=== PATIENT | female | born 1980 | race Caucasian/White ===

== ENCOUNTER 2017-06-23 13:35 | Emergency (ER) | payer OTHER ==
[2017-06-23 13:35] VITALS: BMI 23.8
[2017-06-23] MEDS ORDERED: Sodium Chloride 0.9% 1,000 ML IV ONE (14:07)
[2017-06-23 14:38] LABS: BASO % 0.5 % (0.0-2.0); EOS # 0.3 K/uL (0.0-0.7); EOS % 4.9 % (0.0-4.0); HEMATOCRIT 36.9 % (34.0-47.0); LYMPH # 2.7 K/uL (1.0-4.3); LYMPH % 45.3 % (20.0-40.0); MEAN CELL VOLUME 85.8 fL (81.0-99.0); MEAN CORPUSCULAR HEMOGLOBIN 28.3 pg (27.0-31.0); MEAN PLATELET VOLUME 10.4 fL (7.2-11.7); MONO # 0.5 K/uL (0.0-0.8); MONO % 7.9 % (0.0-10.0); RED CELL DISTRIBUTION WIDTH 12.7 % (11.5-14.5); WHITE BLOOD COUNT 5.9 K/uL (4.8-10.8)
[2017-06-23 14:45] LABS: RBC URINE 18 /hpf (0-3); URINE BACTERIA RARE (<OCC); URINE BILIRUBIN NEGATIVE (NEGATIVE); URINE BLOOD 1+ (NEGATIVE); URINE COLOR Yellow (YELLOW); URINE GLUCOSE (UA) NORMAL (Normal); URINE KETONE NEGATIVE (NEGATIVE); URINE LEUKOCYTE ESTERASE 2+ Leu/uL (Negative); URINE PROTEIN 2+ mg/dL (NEGATIVE); URINE UROBILINOGEN NORMAL mg/dL (0.2-1.0); WBC URINE 98 /hpf (0-5)
[2017-06-23 14:47] LABS: CHLORIDE 105 mmol/L (98-107); POTASSIUM 4.1 mmol/L (3.6-5.2); SODIUM 141 mmol/L (132-148)
[2017-06-23 14:49] LABS: BILIRUBIN,TOTAL 0.8 mg/dL (0.2-1.3); CARBON DIOXIDE 23 mmol/L (22-30); GFR AFRICAN-AMERICAN > 60
[2017-06-23 14:50] LABS: ALB/GLOB RATIO 1.1 (1.0-2.1); ALKALINE PHOSPHATASE 44 U/L (38-126); ALT/SGPT 29 U/L (9-52); AST/SGOT 20 U/L (14-36); BLOOD UREA NITROGEN 12 mg/dL (7-17); CALCIUM 9.3 mg/dl (8.6-10.4); GLUCOSE,RANDOM 83 mg/dL (65-105); TOTAL PROTEIN 7.3 g/dL (6.3-8.3)
--- NOTE | 2017-06-23 16:07 | CT ---
PROCEDURE: CT Abdomen and Pelvis without Oral or IV contrast. HISTORY: dysuria, left CVA tenderness, h/o rt pelvic kidney COMPARISON: MRI of the abdomen performed 09/20/14, MRI of the pelvis performed 09/15/14 TECHNIQUE: Contiguous axial images of the abdomen and pelvis. No oral or IV contrast administered. Coronal and Sagittal reformats generated and reviewed. Radiation dose: Total exam DLP = 325.96 MGy-cm. This CT exam was performed using one or more of the following dose reduction techniques: Automated exposure control, adjustment of the mA and/or kV according to patient size, and/or use of iterative reconstruction technique. FINDINGS: There is limited evaluation of the solid organs without the administration of IV contrast. LOWER THORAX: No visible consolidation, pleural effusion, or pneumothorax. LIVER: Hepatomegaly. GALLBLADDER AND BILE DUCTS: Decompressed gallbladder appears otherwise grossly unremarkable. PANCREAS: Unremarkable unenhanced appearance. SPLEEN: Splenomegaly. ADRENALS: Unremarkable unenhanced appearance. KIDNEYS AND URETERS: Right pelvic kidney. No hydronephrosis or obstructing renal calculus. BLADDER: Bladder wall thickening and associated inflammatory changes; correlate clinically for cystitis. REPRODUCTIVE: Uterus is present. Probable bilateral ovarian cysts. APPENDIX: No secondary signs of acute appendicitis. BOWEL: The stomach is nondistended. Lack of oral contrast limits evaluation for bowel pathology. The bowel loops appear within normal limits of caliber without evidence of intestinal obstruction. PERITONEUM: No significant free fluid. No definite free air. LYMPH NODES: No bulky lymphadenopathy identified. VASCULATURE: No aortic aneurysm. BONES: No acute osseous abnormality is detected. OTHER FINDINGS: None. IMPRESSION: Bladder wall thickening and associated inflammatory changes; correlate clinically for cystitis. Hepatomegaly. Splenomegaly. Right pelvic kidney. Probable bilateral ovarian cysts. Additional findings as above.
[2017-06-23] MEDS ORDERED: cefTRIAXone IV 1 gm in Dextros 50 ML IVPB STA (16:23)
--- NOTE | 2017-06-23 16:28 | C.PDOC ---
Time Seen by Provider: 06/23/17 13:45 Chief Complaint (Nursing): Abdominal Pain History Per: Patient, Family Onset/Duration Of Symptoms: Days (4) Current Symptoms Are (Timing): Still Present Severity: Moderate Location Of Pain/Discomfort: Suprapubic Radiation Of Pain To:: Back Quality Of Discomfort: Burning, "Pain" Associated Symptoms: Back Pain, Urinary Symptoms Alleviating Factors: None Additional History Per: Prior Records Abnormal Vaginal Bleeding: No Past Medical History Reviewed: Historical Data, Nursing Documentation, Vital Signs Vital Signs: Last Vital Signs Temp 98.0 F 06/23/17 13:38 Pulse 90 06/23/17 13:38 Resp 18 06/23/17 13:38 BP 103/70 06/23/17 13:38 Pulse Ox 99 06/23/17 13:38 - Medical History PMH: Anemia, Diabetes (?) Surgical History: - [facility] Procedures APPLICATION OF SPLINT (04/04/15) DPT ADMINISTRATION (07/05/15) MONITORING NOS (06/20/15) LOW CERVICAL (07/05/15) REPAIR OB LAC BLAD/URETH (07/05/15) Family History: States: Unknown Family Hx - Social History Hx Tobacco Use: No Hx Alcohol Use: No Hx Substance Use: No - Immunization History Hx Tetanus Toxoid Vaccination: No Hx Influenza Vaccination: Yes Hx Pneumococcal Vaccination: No Review Of Systems Except As Marked, All Systems Reviewed And Found Negative. Constitutional: Negative for: Fever, Chills, Weakness Cardiovascular: Negative for: Chest Pain Respiratory: Negative for: Shortness of Breath Gastrointestinal: Negative for: Nausea, Vomiting, Diarrhea Genitourinary: Positive for: Dysuria, Frequency. Negative for: Vaginal Discharge Musculoskeletal: Negative for: Neck Pain Skin: Negative for: Rash Neurological: Negative for: Weakness, Numbness, Seizures, Altered Mental Status Physical Exam - Physical Exam Appears: Non-toxic, No Acute Distress Skin: Normal Color, Warm, Dry, No Rash Head: Atraumatic, Normacephalic Eye(s): bilateral: Normal Inspection, PERRL, EOMI Oral Mucosa: Moist Neck: Normal ROM, Supple Cardiovascular: Rhythm Regular Respiratory: Normal Breath Sounds, No Accessory Muscle Use Gastrointestinal/Abdominal: Soft, Tenderness (suprapubic), No Distention, No Guarding, No Rebound Back: CVA Tenderness (left) Extremity: Normal ROM Neurological/Psych: Oriented x3, Normal Motor, Normal Sensation ED Course And Treatment - Laboratory Results Result Diagrams: 06/23/17 14:33 06/23/17 14:33 Interpretation Of Abnormal: UTI, urine C&S sent Urine POC: Negative O2 Sat by Pulse Oximetry: 99 Pulse Ox Interpretation: Normal - CT Scan/US CT abd/pelv. Other Rad Studies (CT/US): Read By Radiologist, Radiology Report Reviewed CT/US Interpretation: IMPRESSION: Bladder wall thickening and associated inflammatory changes; correlate clinically for cystitis. Hepatomegaly. Splenomegaly. Right pelvic kidney. Probable bilateral ovarian cysts. Additional findings as above. Progress - Interventions Interventions:: Observation, Intravenous fluid - Medications Administered Intravenous: NSAID - Data Reviewed Data Reviewed: Lab, Diagnostic imaging, Old records - Patient Status Patient status: Mostly improved - Continuity of Care Discussed patient case with:: Patient, Family-HIPPA compliant, ED Nurse - Patient Plan Patient Plan: Discharge, F/U with PCP Disposition Counseled Patient/Family Regarding: Studies Performed, Diagnosis, Need For Followup, Rx Given - Disposition Referrals: Cathryn Sena MD [Staff Provider] - Disposition: HOME/ ROUTINE Disposition Time: 16:29 Condition: IMPROVED Additional Instructions: Drink plenty of fluids. Follow up with your doctor this week for further evaluation and treatment. Return to the ER if you develop fever, chills, vomiting, worsening of symptoms or if you have any other concerns. Prescriptions: Ciprofloxacin [Cipro] 1 tab PO BID #14 tab Instructions: Urinary Tract Infection in Women (ED) Forms: [employer] (Greenlandic) - Clinical Impression Clinical Impression: UTI (urinary tract infection)
[2017-06-23] MEDS ORDERED: cefTRIAXone IV 1 gm in Dextros 50 ML IVPB ONE (16:36)
[2017-06-23 16:41] VITALS: BP 110/71; PULSE 60; RESP 16; TEMP 97.5; O2SAT 100
== END 2017-06-23 17:17 | disposition home or self-care (01) ==
LOC: C.ER 13:35
DX: N39.0 Urinary tract infection, site not specified (principal)
CPT/HCPCS: 74176; 80053; 81001; 82948; 83690; 84703; 85025; 87086; 87181; 96361; 96374; 96375; 99285; J0696; J1885; J7040

== ENCOUNTER 2018-07-27 09:45 | Emergency (ER) | payer OTHER ==
[2018-07-27 09:46] VITALS: BMI 23.8
[2018-07-27 10:28] VITALS: RESP 18; TEMP 97.6; O2SAT 98
--- NOTE | 2018-07-27 12:36 | RAD ---
HISTORY: Cough COMPARISON: No prior. TECHNIQUE: Chest PA and lateral FINDINGS: LINES AND TUBES: None. LUNG AND PLEURA: The lungs are hyperinflated and there is peribronchial thickening with streaky opacities in both lungs. No focal consolidation. No pleural effusion or pneumothorax. HEART AND MEDIASTINUM: The heart is not enlarged. The hilar and mediastinal contours are within normal limits. SKELETAL STRUCTURES: The bony structures are within normal limits for the patient's age. VISUALIZED UPPER ABDOMEN: Normal. OTHER FINDINGS: None. IMPRESSION: Findings are most compatible with reactive small airway disease/atypical/viral pneumonitis. No lobar pneumonia.
[2018-07-27 12:59] VITALS: BP 110/76; PULSE 78
--- NOTE | 2018-07-27 14:49 | C.PDOC ---
History Of Present Illness 38 year old female presents to the emergency department with complaints of body aches and cough for the past three days. Patient reports a subjective fever and states that she has not taken any medications. She reports that her cough is dry , and denies vomiting, nausea, or sick contact. Chief Complaint (Nursing): Flu-like Symptoms History Per: Patient History/Exam Limitations: no limitations Onset/Duration Of Symptoms: Days (3) Current Symptoms Are (Timing): Still Present Location Of Pain: Diffuse Myalgias Associated Symptoms: Fever, Cough. denies: Nausea, Vomiting Past Medical History Reviewed: Historical Data, Nursing Documentation, Vital Signs Vital Signs: Last Vital Signs Temp 97.6 F 07/27/18 10:05 Pulse 78 07/27/18 12:58 Resp 18 07/27/18 12:58 BP 110/76 07/27/18 12:58 Pulse Ox 98 07/27/18 14:52 - Medical History PMH: Anemia, Diabetes (?) Surgical History: - [facility] Procedures APPLICATION OF SPLINT (04/04/15) DPT ADMINISTRATION (07/05/15) MONITORING NOS (06/20/15) LOW CERVICAL (07/05/15) REPAIR OB LAC BLAD/URETH (07/05/15) Family History: States: No Known Family Hx - Social History Hx Tobacco Use: No Hx Alcohol Use: No Hx Substance Use: No - Immunization History Hx Tetanus Toxoid Vaccination: No Hx Influenza Vaccination: No Hx Pneumococcal Vaccination: No Review Of Systems Except As Marked, All Systems Reviewed And Found Negative. Constitutional: Positive for: Fever, Malaise Respiratory: Positive for: Cough Gastrointestinal: Negative for: Nausea, Vomiting Physical Exam - Physical Exam Appears: Non-toxic, No Acute Distress Skin: Warm, Dry Head: Atraumatic, Normacephalic Eye(s): bilateral: Normal Inspection Nose: Normal Oral Mucosa: Moist Throat: Normal, No Erythema Neck: Normal, Supple Chest: Symmetrical, No Tenderness Cardiovascular: Rhythm Regular, No Murmur Respiratory: Normal Breath Sounds, No Rales, No Rhonchi, No Wheezing Neurological/Psych: Oriented x3, Normal Speech, Normal Cognition ED Course And Treatment O2 Sat by Pulse Oximetry: 98 (RA) Pulse Ox Interpretation: Normal Progress Note: Plan: CXR Two Views. Influenza A B Disposition - Disposition Referrals: [facility] [Outside] [facility] [Outside] Disposition: HOME/ ROUTINE Disposition Time: 12:40 Condition: GOOD Additional Instructions: TANISHA GARCIA, thank you for letting us take care of you today. Your provider was Patrick Cortes DO and you were treated for COUGH/CONGESTION. The emergency medical care you received today was directed at your acute symptoms. If you were prescribed any medication, please fill it and take as directed. It may take several days for your symptoms to resolve. Return to the Emergency Department if your symptoms worsen, do not improve, or if you have any other problems. Please contact your doctor or call one of the physicians/clinics you have been referred to that are listed on the Patient Visit Information form that is included in your discharge packet. Bring any paperwork you were given at discharge with you along with any medications you are taking to your follow up visit. Our treatment cannot replace ongoing medical care by a primary care provider outside of the emergency department. Thank you for allowing the [facility] team to be part of your care today. Follow up with our clinic this week for re-evaluation and further management. Prescriptions: Azithromycin [Zithromax] 250 mg PO DAILY #6 tab Cetirizine HCl/Pseudoephedrine [Zyrtec-D Tablet] 1 each PO Q12 #10 tab.er.12h Instructions: Acute Bronchitis Forms: [employer] (Hungarian) - Clinical Impression Clinical Impression: Upper respiratory infection - Scribe Statement The provider has reviewed the documentation as recorded by the Scribe (Gutierrez Levy) Provider Attestation: All medical record entries made by the Scribe were at my direction and personally dictated by me. I have reviewed the chart and agree that the record accurately reflects my personal performance of the history, physical exam, medical decision making, and the department course for this patient. I have also personally directed, reviewed, and agree with the discharge instructions and disposition.
== END 2018-07-27 13:04 | disposition home or self-care (01) ==
LOC: C.ER 09:45
DX: J06.9 Acute upper respiratory infection, unspecified (principal)

== ENCOUNTER 2018-12-15 21:25 | Inpatient (IN) | payer OTHER ==
[2018-12-15 21:25] VITALS: BMI 23.8
--- NOTE | 2018-12-15 22:05 | C.PDOC ---
History Of Present Illness 38 year old female presents to the ED c/o abdominal pain, bloating and decreased PO intake that started yesterday. Patient denies fever, chills, nausea, vomit, diarrhea, rash, dysuria, hematuria, recent travel, sick contacts. Time Seen by Provider: 12/15/18 22:05 Chief Complaint (Nursing): Abdominal Pain History Per: Patient History/Exam Limitations: no limitations Onset/Duration Of Symptoms: Days (1) Current Symptoms Are (Timing): Still Present Context: Other Severity: Moderate Pain Scale Rating Of: 5 Location Of Pain/Discomfort: Diffuse, RLQ (especially) Quality Of Discomfort: Other (bloating) Associated Symptoms: Loss Of Appetite. denies: Nausea, Vomiting, Diarrhea, Constipation, Urinary Symptoms Exacerbating Factors: Food Alleviating Factors: None Last Bowel Movement: Today Recent travel outside of the [place]: No Additional History Per: Patient Abnormal Vaginal Bleeding: No Past Medical History Reviewed: Historical Data, Nursing Documentation, Vital Signs Vital Signs: Last Vital Signs Temp 97.8 F 12/15/18 21:56 Pulse 77 12/15/18 21:56 Resp 16 12/15/18 21:56 BP 109/73 12/15/18 21:56 Pulse Ox 99 12/15/18 21:56 - Medical History PMH: Anemia, Diabetes (?) Surgical History: - [facility] Procedures APPLICATION OF SPLINT (04/04/15) DPT ADMINISTRATION (07/05/15) MONITORING NOS (06/20/15) LOW CERVICAL (07/05/15) REPAIR OB LAC BLAD/URETH (07/05/15) Family History: States: Unknown Family Hx - Social History Hx Tobacco Use: No Hx Alcohol Use: No Hx Substance Use: No - Immunization History Hx Tetanus Toxoid Vaccination: No Hx Influenza Vaccination: No Hx Pneumococcal Vaccination: No Review Of Systems Constitutional: Negative for: Fever, Chills Cardiovascular: Negative for: Chest Pain Respiratory: Negative for: Shortness of Breath Gastrointestinal: Positive for: Abdominal Pain. Negative for: Nausea, Vomiting, Diarrhea Genitourinary: Negative for: Dysuria, Hematuria Skin: Negative for: Rash Neurological: Negative for: Weakness, Numbness, Headache Psych: Negative for: Anxiety Physical Exam - Physical Exam Appears: Non-toxic, No Acute Distress Skin: Warm, Dry Head: Normacephalic Eye(s): bilateral: Normal Inspection Oral Mucosa: Moist Neck: Supple Chest: Symmetrical Cardiovascular: Rhythm Regular Respiratory: No Rales, No Rhonchi, No Wheezing Gastrointestinal/Abdominal: Soft, No Tenderness, No Guarding, No Rebound, Other (tympanic to percussion) Back: No CVA Tenderness Extremity: Normal ROM Extremity: Bilateral: Atraumatic, Normal Color And Temperature, Normal ROM Neurological/Psych: Oriented x3, Normal Speech, Normal Cognition Gait: Steady ED Course And Treatment - Laboratory Results Result Diagrams: 12/15/18 22:29 12/15/18 22:29 O2 Sat by Pulse Oximetry: 99 (ON RA) Pulse Ox Interpretation: Normal - CT Scan/US CT abd/pelvis Other Rad Studies (CT/US): Read By Radiologist, Radiology Report Reviewed CT/US Interpretation: CT SCAN OF THE ABDOMEN AND PELVIS WITH CONTRAST. CLINICAL HISTORY: Abdominal pain. Bloating. TECHNIQUE: Multiple axial and coronal CT shelly ges were obtained through the abdomen and pelvis after administration of intravenous contrast material. COMMENTS: Rotated right pelvic kidney, normal variant. 4.8 cm right ovarian cyst. Enlarged appendix measuring 1.1 cm. Diffuse thickening and enhancement of the wall of the gallbladder. Mild apparent thickening of the sigmoid colon. The liver is of uniform attenuation without mass or defect. There is no intra or extrahepatic biliary ductal dilatation. The spleen is normal. The gallbladder is within normal limits. The pancreas is of normal contour and attenuation characteristics. There is no evidence of adrenal mass. Both kidneys demonstrate prompt and equal nephrograms. The kidneys are normal in size, shape and configuration. There is no evidence of renal or ureteral mass. No renal or ureteral calculi are identified. There is no hydroureter or hydronephrosis. No evidence for ap pendicitis. There is no bowel wall thickening. No evidence for small or large bowel obstruction. There is no evidence of abdominal ascites or lymphadenopathy. There is no evidence of intrinsic or extrinsic bladder mass. There is no pelvic ascites or lymphadenopathy. Images of the lung bases show no evidence of pleural or parenchymal mass. There are no pleural effusions. The bony structures are free of lytic or blastic lesions. IMPRESSION: Rotated right pelvic kidney, normal variant. 4.8 cm right ovarian cyst. Uncomplicated. Enlarged appendix measuring 1.1 cm. Diffuse thickening and enhancement of the wall of the appendix. Uncomplicated acute appendicitis. Mild apparent thickening of the sigmoid colon. Underdistention, spasm versus mild acute inflammatory pathology. Thank you for your kind referral of this patient. . Electronically signed on Dec 16, 2018 12:33:02 AM EST by: Mariza Jaime M.D., Certified by DARLENE, MSK, Neuroradiology Progress Note: Plan: - Labs. - IV fluids. - Protonix 40 mg IVP. - UA Disposition Discussed With Dr.: Saul Mg Comment: acceptd the pt on his service and took over the care at 1:17AM Doctor Will See Patient In The: Hospital Counseled Patient/Family Regarding: Studies Performed, Diagnosis - Disposition Disposition: HOSPITALIZED Disposition Time: 22:05 Condition: FAIR Forms: [facility] (Telugu) - POA Present On Arrival: None - Clinical Impression Clinical Impression: Abdominal pain, Acute appendicitis - Scribe Statement The provider has reviewed the documentation as recorded by the Scribe Zohaib Szymanski All medical record entries made by the Scribe were at my direction and personally dictated by me. I have reviewed the chart and agree that the record accurately reflects my personal performance of the history, physical exam, medical decision making, and the department course for this patient. I have also personally directed, reviewed, and agree with the discharge instructions and disposition. Decision To Admit - Pt Status Changed To: Hospital Disposition Of: Inpatient - Admit Certification Admit to Inpatient:: After my assessment, the patient will require hospitalization for at least two midnights. This is because of the severity of symptoms shown, intensity of services needed, and/or the medical risk in this patient being treated as an outpatient. - InPatient: Physician Admission Certification:: After my assessment, the patient will require hospitalization for at least two midnights. This is because of the severity of symptoms shown, intensity of services needed, and/or the medical risk in this patient being treated as an outpatient. - . Bed Request Type: Regular Admitting Physician: Saul Mg Patient Diagnosis: Abdominal pain, Acute appendicitis
[2018-12-15] MEDS ORDERED: Sodium Chloride 0.9% 1,000 ML IV ONE (22:10)
[2018-12-15] MEDS ORDERED: Sodium Chloride 0.9% 1,000 ML ONE (22:28)
[2018-12-15 22:53] LABS: ALB/GLOB RATIO 1.4 (1.0-2.1); ALBUMIN 4.5 g/dL (3.5-5.0); ALT/SGPT 18 U/L (9-52); AST/SGOT 19 U/L (14-36); BLOOD UREA NITROGEN 19 mg/dL (7-17); CALCIUM 9.4 mg/dl (8.6-10.4); GFR NON-AFRICAN AMERICAN > 60; LIPASE 61 U/L (23-300)
[2018-12-15 22:55] LABS: BASO % 0.3 % (0.0-2.0); EOS # 0.5 K/uL (0.0-0.7); EOS % 7.8 % (0.0-4.0); HCG,QUALITATIVE URINE NEGATIVE (NEGATIVE); HEMOGLOBIN 12.7 g/dL (11.0-16.0); LYMPH # 3.4 K/uL (1.0-4.3); LYMPH % 49.3 % (20.0-40.0); MEAN CELL VOLUME 87.6 fL (81.0-99.0); MEAN CORPUSCULAR HEMOGLOBIN 29.3 pg (27.0-31.0); MEAN CORPUSCULAR HGB CONC 33.5 g/dL (33.0-37.0); MEAN PLATELET VOLUME 10.6 fL (7.2-11.7); MONO # 0.4 K/uL (0.0-0.8); MONO % 5.8 % (0.0-10.0); NEUT # 2.6 K/uL (1.8-7.0); NEUT % 36.8 % (50.0-75.0); NRBC % 0.2 % (0.0-2.0); RBC 4.33 Mil/uL (3.80-5.20)
[2018-12-15 22:56] LABS: SQUAMOUS EPITHIAL 4 /hpf (0-5)
[2018-12-15 22:57] LABS: URINE CLARITY CLEAR (Clear); URINE COLOR YELLOW (YELLOW); URINE GLUCOSE (UA) NEGATIVE (Normal)
[2018-12-15 22:58] LABS: URINE BILIRUBIN NEGATIVE (NEGATIVE); URINE BLOOD TRACE-LYSED (NEGATIVE); URINE LEUKOCYTE ESTERASE NEGATIVE Leu/uL (Negative); URINE PROTEIN NEGATIVE (NEGATIVE); URINE UROBILINOGEN 0.2 mg/dL (0.2-1.0)
[2018-12-15 23:01] LABS: INR 1.2
[2018-12-15] MEDS ORDERED: Iohexol 350mg/ml 100 ML ONE (23:44)
[2018-12-16] MEDS ORDERED: Piperacillin/Tazobact 3.375 gm 100 ML IVPB STA (00:35)
[2018-12-16] MEDS ORDERED: Piperacillin/Tazobact 3.375 gm 100 ML IVPB ONE (00:44)
--- NOTE | 2018-12-16 01:29 | CP.PCM.HP ---
<Dulce Gaffney - Last Filed: 12/16/18 01:23> History of Present Illness - History of Present Illness History of Present Illness: Surgery: Dr. Mg Pt is a 38F with no PMHx who presented to with complaints of abdominal pain that started yesterday morning. Pt states she started having generalized abdominal pain in her abdomen that kept getting worse throughout the day. She states she has never had similar pain before. She describes the pain as dull and more severe in the RLQ. She also admits to feeling bloated. Denies any other associated symptoms such as nausea/vomiting, fevers/chills, chest pain or SOB. In the ER, pt had a CT abdomen/pelvis which shows enlarged appendix with wall enhancement and edema consistent with acute appendicitis. Pt also found to have a R ovarian cyst, non-complex. Currently, pt resting comfortably. States pain is still present but well controlled with the pain meds. Pt states she no longer has regular periods due to control. She admits to vaginal spotting every few months. Denies any other complaints. PMHx: denies PSHx: x 3 SocialHx: denies smoking, EtOH/drugs] FamHx: non-contributory NKDA Present on Admission - Present on Admission Any Indicators Present on Admission: No Review of Systems - Review of Systems All systems: reviewed and no additional remarkable complaints except (as per HPI ) Past Patient History - Past Social History Smoking Status: Never Smoked - ENDOCRINE/METABOLIC Hx Diabetes Mellitus Type 2: Yes - HEMATOLOGICAL/ONCOLOGICAL Hx Anemia: Yes - MUSCULOSKELETAL/RHEUMATOLOGICAL Hx Falls: Yes (8 years ago/ [place]) - PSYCHIATRIC Hx Substance Use: No - SURGICAL HISTORY Hx Surgeries: Yes Hx Section: Yes (x3) - ANESTHESIA Hx Anesthesia: Yes Hx Anesthesia Reactions: No Hx Malignant Hyperthermia: No Meds Allergies/Adverse Reactions: Allergies Allergy/AdvReac Type Severity Reaction Status Date / Time No Known Allergies Allergy Verified 12/15/18 22:02 Physical Exam - Constitutional Appears: Well, No Acute Distress - Head Exam Head Exam: ATRAUMATIC, NORMOCEPHALIC - Eye Exam Eye Exam: Normal appearance - ENT Exam ENT Exam: Mucous Membranes Moist - Respiratory Exam Respiratory Exam: NORMAL BREATHING PATTERN - Cardiovascular Exam Cardiovascular Exam: RRR - GI/Abdominal Exam GI & Abdominal Exam: Rebound (RLQ), Soft, Tenderness (RLQ). absent: Distended, Guarding - Extremities Exam Extremities exam: Negative for: tenderness - Neurological Exam Neurological exam: Alert, Oriented x3 - Skin Skin Exam: Dry, Warm Results - Vital Signs Recent Vital Signs: Last Vital Signs Temp 97.8 F 12/15/18 21:56 Pulse 77 12/15/18 21:56 Resp 16 12/15/18 21:56 BP 109/73 12/15/18 21:56 Pulse Ox 99 12/16/18 01:19 - Labs Result Diagrams: 12/15/18 22:29 12/15/18 22:29 Labs: Laboratory Results - last 24 hr 12/15/18 12/15/18 12/15/18 22:29 22:29 22:29 WBC 7.0 RBC 4.33 Hgb 12.7 Hct 37.9 MCV 87.6 MCH 29.3 MCHC 33.5 RDW 13.0 Plt Count 211 MPV 10.6 Neut % (Auto) 36.8 L Lymph % (Auto) 49.3 H [place] % (Auto) 5.8 Eos % (Auto) 7.8 H Baso % (Auto) 0.3 Neut # (Auto) 2.6 Lymph # (Auto) 3.4 [place] # (Auto) 0.4 Eos # (Auto) 0.5 Baso # (Auto) 0.0 PT 13.0 H INR 1.2 APTT 33 Sodium Potassium Chloride Carbon Dioxide Anion Gap BUN Creatinine Est GFR ( Amer) Est GFR (Non-Af Amer) Random Glucose Calcium Total Bilirubin AST ALT Alkaline Phosphatase Total Protein Albumin Globulin Albumin/Globulin Ratio Lipase Urine Color Yellow Urine Clarity Clear Urine pH 6.0 Ur Specific [place] 1.025 Urine Protein Negative Urine Glucose (UA) Negative Urine Ketones Negative Urine Blood Trace-lysed Urine Nitrate Negative Urine Bilirubin Negative Urine Urobilinogen 0.2 Ur Leukocyte Esterase Negative Urine WBC (Auto) 1 Urine RBC (Auto) 2 Ur Squamous Epith Cells 4 Urine HCG, Qual Negative 12/15/18 22:29 WBC RBC Hgb Hct MCV MCH MCHC RDW Plt Count MPV Neut % (Auto) Lymph % (Auto) [place] % (Auto) Eos % (Auto) Baso % (Auto) Neut # (Auto) Lymph # (Auto) [place] # (Auto) Eos # (Auto) Baso # (Auto) PT INR APTT Sodium 136 Potassium 3.7 Chloride 101 Carbon Dioxide 27 Anion Gap 12 BUN 19 H Creatinine 0.8 Est GFR ( Amer) > 60 Est GFR (Non-Af Amer) > 60 Random Glucose 94 Calcium 9.4 Total Bilirubin 0.4 AST 19 ALT 18 Alkaline Phosphatase 45 Total Protein 7.7 Albumin 4.5 Globulin 3.2 Albumin/Globulin Ratio 1.4 Lipase 61 Urine Color Urine Clarity Urine pH Ur Specific [place] Urine Protein Urine Glucose (UA) Urine Ketones Urine Blood Urine Nitrate Urine Bilirubin Urine Urobilinogen Ur Leukocyte Esterase Urine WBC (Auto) Urine RBC (Auto) Ur Squamous Epith Cells Urine HCG, Qual - Imaging and Cardiology CT scan - abdomen Status: Image reviewed by me, Report reviewed by me Assessment & Plan - Assessment and Plan (Free Text) Assessment: 38F with RLQ pain r/o acute appendicitis Plan: - keep NPO - IVF, IV ABX - plan for OR for lap appendectomy - d/w Dr. Saurav Gaffney <Sual Mg B - Last Filed: 12/16/18 16:40> Results - Vital Signs Recent Vital Signs: Last Vital Signs Temp 98.1 F 12/16/18 08:00 Pulse 65 12/16/18 08:00 Resp 20 12/16/18 08:00 BP 90/54 L 12/16/18 08:00 Pulse Ox 95 12/16/18 08:00 - Labs Result Diagrams: 12/16/18 07:15 12/15/18 22:29 Labs: Laboratory Results - last 24 hr 12/15/18 12/15/18 12/15/18 22:29 22:29 22:29 WBC 7.0 RBC 4.33 Hgb 12.7 Hct 37.9 MCV 87.6 MCH 29.3 MCHC 33.5 RDW 13.0 Plt Count 211 MPV 10.6 Neut % (Auto) 36.8 L Lymph % (Auto) 49.3 H [place] % (Auto) 5.8 Eos % (Auto) 7.8 H Baso % (Auto) 0.3 Neut # (Auto) 2.6 Lymph # (Auto) 3.4 [place] # (Auto) 0.4 Eos # (Auto) 0.5 Baso # (Auto) 0.0 PT 13.0 H INR 1.2 APTT 33 Sodium Potassium Chloride Carbon Dioxide Anion Gap BUN Creatinine Est GFR ( Amer) Est GFR (Non-Af Amer) Random Glucose Calcium Total Bilirubin AST ALT Alkaline Phosphatase Total Protein Albumin Globulin Albumin/Globulin Ratio Lipase Urine Color Yellow Urine Clarity Clear Urine pH 6.0 Ur Specific [place] 1.025 Urine Protein Negative Urine Glucose (UA) Negative Urine Ketones Negative Urine Blood Trace-lysed Urine Nitrate Negative Urine Bilirubin Negative Urine Urobilinogen 0.2 Ur Leukocyte Esterase Negative Urine WBC (Auto) 1 Urine RBC (Auto) 2 Ur Squamous Epith Cells 4 Urine HCG, Qual Negative 12/15/18 12/16/18 22:29 07:15 WBC 5.1 RBC 4.00 Hgb 11.9 Hct 34.8 MCV 87.0 MCH 29.9 MCHC 34.3 RDW 13.0 Plt Count 181 MPV 9.9 Neut % (Auto) 25.1 L Lymph % (Auto) 57.2 H [place] % (Auto) 6.2 Eos % (Auto) 11.2 H Baso % (Auto) 0.3 Neut # (Auto) 1.3 L Lymph # (Auto) 2.9 [place] # (Auto) 0.3 Eos # (Auto) 0.6 Baso # (Auto) 0.0 PT INR APTT Sodium 136 Potassium 3.7 Chloride 101 Carbon Dioxide 27 Anion Gap 12 BUN 19 H Creatinine 0.8 Est GFR ( Amer) > 60 Est GFR (Non-Af Amer) > 60 Random Glucose 94 Calcium 9.4 Total Bilirubin 0.4 AST 19 ALT 18 Alkaline Phosphatase 45 Total Protein 7.7 Albumin 4.5 Globulin 3.2 Albumin/Globulin Ratio 1.4 Lipase 61 Urine Color Urine Clarity Urine pH Ur Specific [place] Urine Protein Urine Glucose (UA) Urine Ketones Urine Blood Urine Nitrate Urine Bilirubin Urine Urobilinogen Ur Leukocyte Esterase Urine WBC (Auto) Urine RBC (Auto) Ur Squamous Epith Cells Urine HCG, Qual Attending/Attestation - Attestation I have personally seen and examined this patient.: Yes I have fully participated in the care of the patient.: Yes I have reviewed all pertinent clinical information: Yes Notes (Text): Pt was seen and examined at bedside Agree with above note and assessment Pt with RLQ pain and nausea Abdomen: Soft, RLQ tenderness, No distended Labs and Radiology reviewed Ass: Right Ovarian cyst, Dilated Appendix, Abdominal Pain Plan: OR for Lap Appendectomy 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 Risk and benefit explained in detail.
[2018-12-16] MEDS: Piperacillin/Tazobact 3.375 GM in Sodium Chloride 100 ML IVPB SCH ×4 (01:42→21:34)
[2018-12-16] MEDS: Lactated Ringer's 1,000 ML IV SCH ×2 (02:53→21:58)
[2018-12-16 07:24] LABS: BASO % 0.3 % (0.0-2.0); EOS # 0.6 K/uL (0.0-0.7); EOS % 11.2 % (0.0-4.0); HEMOGLOBIN 11.9 g/dL (11.0-16.0); LYMPH # 2.9 K/uL (1.0-4.3); LYMPH % 57.2 % (20.0-40.0); MEAN CORPUSCULAR HEMOGLOBIN 29.9 pg (27.0-31.0); MEAN CORPUSCULAR HGB CONC 34.3 g/dL (33.0-37.0); MEAN PLATELET VOLUME 9.9 fL (7.2-11.7); MONO # 0.3 K/uL (0.0-0.8); MONO % 6.2 % (0.0-10.0); NEUT # 1.3 K/uL (1.8-7.0); NEUT % 25.1 % (50.0-75.0); NRBC % 0.1 % (0.0-2.0); WHITE BLOOD COUNT 5.1 K/uL (4.8-10.8)
--- NOTE | 2018-12-16 09:04 | CP.PCM.CON ---
<MunozTawny - Last Filed: 12/16/18 10:46> History of Present Illness - History of Present Illness History of Present Illness: PROTECTIVE SERVICE SPECIALIST consult note for Dr. Pimentel Patient is a 38 year old female w/ LMP > 3 years ago 2/2 Nexplanon implant, most recently placed in 07/22. Pt reports no PMHx,; PSHx significant for 3 sections. Pt presented to ED w complaints of abdominal pain that awoke her from her sleep early saturday morning. Pt reports the pain initially presented periumbilically with subsequent radiation to RLQ/LLQ, minimally alleviated w/ heating pad and Motrin at home. Pt reports similar sx in the past, however less severe in intensity and self-resolving. Pt attempted to contact PMD but was unsuccessful, and presented to ED for further evaluation. Pt complains of urinary urgency and anorexia. Pt denies fever, chills, nausea, vomiting, constipation, dysuria, hematuria, or vaginal bleeding. Of note, pt's first was indicated due to failure to progress, and most recent performed in [place] in 2014 was complicated by a bladder injury requiring surgical repair. Imaging performed during admission reveals an early acute appendicitis, as well as a 5.1cm right ovarian cyst. Review of imaging on previous visits confirm same. PMHx: none PSHx: cesarian sections x3 Medications: Nexplanon implant NKDA Fam Hx: denies Social Hx: denies Review of Systems - Constitutional Constitutional: Anorexia. absent: Chills - Cardiovascular Cardiovascular: absent: Chest Pain - Respiratory Respiratory: absent: Dyspnea - Gastrointestinal Gastrointestinal: Abdominal Pain (diffuse, greatest in RLQ). absent: Constipation, Diarrhea, Hematochezia, Nausea, Vomiting - Genitourinary Genitourinary: Urinary Urgency. absent: Dysuria, Hematuria - Reproductive: Female Reproductive:Female: Amenorrhea/ Control (Nexplanon) Past Patient History - Past Social History Smoking Status: Never Smoked - ENDOCRINE/METABOLIC Hx Diabetes Mellitus Type 2: Yes - HEMATOLOGICAL/ONCOLOGICAL Hx Anemia: Yes - MUSCULOSKELETAL/RHEUMATOLOGICAL Hx Falls: No - PSYCHIATRIC Hx Substance Use: No - SURGICAL HISTORY Hx Surgeries: Yes Hx Section: Yes (x3) - ANESTHESIA Hx Anesthesia: Yes Hx Anesthesia Reactions: No Hx Malignant Hyperthermia: No Meds Allergies/Adverse Reactions: Allergies Allergy/AdvReac Type Severity Reaction Status Date / Time No Known Allergies Allergy Verified 12/15/18 22:02 - Medications Medications: Current Medications Lactated Ringer's (Lactated Ringer's) 1,000 mls @ 100 mls/hr IV .Q10H [facility] Last Admin: 12/16/18 02:53 Dose: 100 mls/hr Piperacillin Sod/Tazobactam (Sod 3.375 gm/ Sodium Chloride) 100 mls @ 200 ml s/hr IVPB Q6H [facility]STASI[facility]; Protocol Last Admin: 12/16/18 06:34 Dose: 200 mls/hr Ketorolac Tromethamine (Toradol) 30 mg IVP Q6H PRN PRN Reason: Pain, moderate (4-7) Stop: 12/21/18 01:21 Physical Exam - Head Exam Head Exam: ATRAUMATIC, NORMAL INSPECTION, NORMOCEPHALIC - Eye Exam Eye Exam: EOMI, Normal appearance - ENT Exam ENT Exam: Mucous Membranes Moist, Normal Exam - Neck Exam Neck exam: Positive for: Normal Inspection - Respiratory Exam Respiratory Exam: Clear to Auscultation Bilateral, NORMAL BREATHING PATTERN. absent: Respiratory Distress - Cardiovascular Exam Cardiovascular Exam: REGULAR RHYTHM. absent: Tachycardia - GI/Abdominal Exam GI & Abdominal Exam: Normal Bowel Sounds, Rebound, Soft, Tenderness. absent: Distended, Guarding - Extremities Exam Extremities exam: Positive for: normal inspection. Negative for: calf tenderness, pedal edema - Neurological Exam Neurological exam: Alert, Oriented x3 - Psychiatric Exam Psychiatric exam: Normal Affect, Normal Mood - Skin Skin Exam: Dry, Intact, Normal Color, Warm Results - Vital Signs Recent Vital Signs: Last Vital Signs Temp 98 F 12/16/18 04:06 Pulse 70 12/16/18 04:06 Resp 20 12/16/18 04:06 BP 107/71 12/16/18 04:06 Pulse Ox 99 12/16/18 04:06 - Labs Result Diagrams: 12/16/18 07:15 12/15/18 22:29 Labs: Laboratory Results - last 24 hr 12/15/18 12/15/18 12/15/18 22:29 22:29 22:29 WBC 7.0 RBC 4.33 Hgb 12.7 Hct 37.9 MCV 87.6 MCH 29.3 MCHC 33.5 RDW 13.0 Plt Count 211 MPV 10.6 Neut % (Auto) 36.8 L Lymph % (Auto) 49.3 H [place] % (Auto) 5.8 Eos % (Auto) 7.8 H Baso % (Auto) 0.3 Neut # (Auto) 2.6 Lymph # (Auto) 3.4 [place] # (Auto) 0.4 Eos # (Auto) 0.5 Baso # (Auto) 0.0 PT 13.0 H INR 1.2 APTT 33 Sodium Potassium Chloride Carbon Dioxide Anion Gap BUN Creatinine Est GFR ( Amer) Est GFR (Non-Af Amer) Random Glucose Calcium Total Bilirubin AST ALT Alkaline Phosphatase Total Protein Albumin Globulin Albumin/Globulin Ratio Lipase Urine Color Yellow Urine Clarity Clear Urine pH 6.0 Ur Specific [place] 1.025 Urine Protein Negative Urine Glucose (UA) Negative Urine Ketones Negative Urine Blood Trace-lysed Urine Nitrate Negative Urine Bilirubin Negative Urine Urobilinogen 0.2 Ur Leukocyte Esterase Negative Urine WBC (Auto) 1 Urine RBC (Auto) 2 Ur Squamous Epith Cells 4 Urine HCG, Qual Negative 12/15/18 12/16/18 22:29 07:15 WBC 5.1 RBC 4.00 Hgb 11.9 Hct 34.8 MCV 87.0 MCH 29.9 MCHC 34.3 RDW 13.0 Plt Count 181 MPV 9.9 Neut % (Auto) 25.1 L Lymph % (Auto) 57.2 H [place] % (Auto) 6.2 Eos % (Auto) 11.2 H Baso % (Auto) 0.3 Neut # (Auto) 1.3 L Lymph # (Auto) 2.9 [place] # (Auto) 0.3 Eos # (Auto) 0.6 Baso # (Auto) 0.0 PT INR APTT Sodium 136 Potassium 3.7 Chloride 101 Carbon Dioxide 27 Anion Gap 12 BUN 19 H Creatinine 0.8 Est GFR ( Amer) > 60 Est GFR (Non-Af Amer) > 60 Random Glucose 94 Calcium 9.4 Total Bilirubin 0.4 AST 19 ALT 18 Alkaline Phosphatase 45 Total Protein 7.7 Albumin 4.5 Globulin 3.2 Albumin/Globulin Ratio 1.4 Lipase 61 Urine Color Urine Clarity Urine pH Ur Specific [place] Urine Protein Urine Glucose (UA) Urine Ketones Urine Blood Urine Nitrate Urine Bilirubin Urine Urobilinogen Ur Leukocyte Esterase Urine WBC (Auto) Urine RBC (Auto) Ur Squamous Epith Cells Urine HCG, Qual Assessment & Plan - Assessment and Plan (Free Text) Assessment: 38 year old female admitted for evaluation and treatment of acute abdominal pain 2/2 acute appendicitis vs right ovarian cyst Plan: Abdominal pain, 2/2 acute appendicitis vs right ovarian cystic mass -Abd/Pelvic CT: prominent appendix of 1.1cm in width w/ few adjacent periappendiceal lymph nodes measuring up to 1.3cm; suggestive of early acu5te appendicitis. 5.1 cm right ovarian cyst. Mild thickening of sigmoid colon. Rotated right pelvic kidney. -F/U P/TV US for further evaluation of cystic lesion -Lap appendectomy today w/ Dr. Mg -Management per surgery Discussed with Dr. Pimentel -Tawny Munoz, PGY-1 <Mery Pimentel - Last Filed: 12/16/18 15:46> Meds - Medications Medications: Current Medications Lactated Ringer's (Lactated Ringer's) 1,000 mls @ 100 mls/hr IV .Q10H [facility] Last Admin: 12/16/18 02:53 Dose: 100 mls/hr Piperacillin Sod/Tazobactam (Sod 3.375 gm/ Sodium Chloride) 100 mls @ 200 mls/hr IVPB Q6H ANASTASIYA; Protocol Last Admin: 12/16/18 13:34 Dose: 200 mls/hr Ketorolac Tromethamine (Toradol) 30 mg IVP Q6H PRN PRN Reason: Pain, moderate (4-7) Stop: 12/21/18 01:21 Results - Vital Signs Recent Vital Signs: Last Vital Signs Temp 98.1 F 12/16/18 08:00 Pulse 65 12/16/18 08:00 Resp 20 12/16/18 08:00 BP 90/54 L 12/16/18 08:00 Pulse Ox 95 12/16/18 08:00 - Labs Result Diagrams: 12/16/18 07:15 12/15/18 22:29 Labs: Laboratory Results - last 24 hr 12/15/18 12/15/18 12/15/18 22:29 22:29 22:29 WBC 7.0 RBC 4.33 Hgb 12.7 Hct 37.9 MCV 87.6 MCH 29.3 MCHC 33.5 RDW 13.0 Plt Count 211 MPV 10.6 Neut % (Auto) 36.8 L Lymph % (Auto) 49.3 H [place] % (Auto) 5.8 Eos % (Auto) 7.8 H Baso % (Auto) 0.3 Neut # (Auto) 2.6 Lymph # (Auto) 3.4 [place] # (Auto) 0.4 Eos # (Auto) 0.5 Baso # (Auto) 0.0 PT 13.0 H INR 1.2 APTT 33 Sodium Potassium Chloride Carbon Dioxide Anion Gap BUN Creatinine Est GFR ( Amer) Est GFR (Non-Af Amer) Random Glucose Calcium Total Bilirubin AST ALT Alkaline Phosphatase Total Protein Albumin Globulin Albumin/Globulin Ratio Lipase Urine Color Yellow Urine Clarity Clear Urine pH 6.0 Ur Specific [place] 1.025 Urine Protein Negative Urine Glucose (UA) Negative Urine Ketones Negative Urine Blood Trace-lysed Urine Nitrate Negative Urine Bilirubin Negative Urine Urobilinogen 0.2 Ur Leukocyte Esterase Negative Urine WBC (Auto) 1 Urine RBC (Auto) 2 Ur Squamous Epith Cells 4 Urine HCG, Qual Negative 12/15/18 12/16/18 22:29 07:15 WBC 5.1 RBC 4.00 Hgb 11.9 Hct 34.8 MCV 87.0 MCH 29.9 MCHC 34.3 RDW 13.0 Plt Count 181 MPV 9.9 Neut % (Auto) 25.1 L Lymph % (Auto) 57.2 H [place] % (Auto) 6.2 Eos % (Auto) 11.2 H Baso % (Auto) 0.3 Neut # (Auto) 1.3 L Lymph # (Auto) 2.9 [place] # (Auto) 0.3 Eos # (Auto) 0.6 Baso # (Auto) 0.0 PT INR APTT Sodium 136 Potassium 3.7 Chloride 101 Carbon Dioxide 27 Anion Gap 12 BUN 19 H Creatinine 0.8 Est GFR ( Amer) > 60 Est GFR (Non-Af Amer) > 60 Random Glucose 94 Calcium 9.4 Total Bilirubin 0.4 AST 19 ALT 18 Alkaline Phosphatase 45 Total Protein 7.7 Albumin 4.5 Globulin 3.2 Albumin/Globulin Ratio 1.4 Lipase 61 Urine Color Urine Clarity Urine pH Ur Specific [place] Urine Protein Urine Glucose (UA) Urine Ketones Urine Blood Urine Nitrate Urine Bilirubin Urine Urobilinogen Ur Leukocyte Esterase Urine WBC (Auto) Urine RBC (Auto) Ur Squamous Epith Cells Urine HCG, Qual Assessment & Plan - Assessment and Plan (Free Text) Plan: agree with above pt seen and examined reprots RLQ pain intemrittent on an doff for an extended time but woresning over past few days. pt reprots pain exaebated iwth movement adn pushing. pt denies any fever, c hills, nause, vomiing VS see aove Pese aboe Labs/Imagingi reviwed CT 5cm right ovarian cyst, US erviwed A/p 38 y/o P3 with RLQ pain with adnexmal mass -pt for surgical evaluationfor possible appendectomy -Imaging results dw patient in regards to pelvic kidney, possible adhesions (also given hx of previous cystotomy with last cxs), pt advised possible need for ovairan cystecotmy, possilby oopherecotmy, possible slapiencotmy during OR concurretn appendecotmy eli, risk fo bowelr or repeta bladder injry, injury to blood vessels etc. pt advised on risks/benefits/alterntaive to surgery. pt also advised cannot rule out malignacy, and with possible laprasopcic procedure converted to open. Extensive time spent patietn counselign her on concerns and possible ddx. Consent obtained and wittness.
--- NOTE | 2018-12-16 09:04 | CT ---
CT abdomen and pelvis HISTORY: Abdominal pain. COMPARISON: None available. TECHNIQUE: Multiple contiguous axial images were performed through the abdomen and pelvis with the use of intravenous contrast. Subsequently, sagittal and coronal reformatted images were obtained. This CT exam was performed using one or more of the following dose reduction techniques: Automated exposure control, adjustment of the mA and/or kV according to patient size, and/or use of iterative reconstruction technique. Findings: 2 millimeter nodule within the right middle lobe of the lung on series 3, image 1. Scattered areas of atelectasis within the visualized lung burch. No pleural or pericardial effusion. 3 millimeter hyperattenuated foci seen within the left hepatic lobe on series 3, image 22 and may be related to adjacent streak artifact. This is too small to adequately characterize. Clinical correlation. Correlation with multiphasic CT or MR may be helpful for further evaluation if clinically indicated. Contracted gallbladder which appears somewhat thickened and enhancing. Clinical correlation. Spleen is preserved. Adrenal glands are preserved. Pancreas is preserved. Upper abdominal bowel is grossly preserved. Small fat containing midline umbilical hernia. Rotated right pelvic kidney. Left kidney appears grossly preserved without gross hydronephrosis or calculi. Urinary bladder is preserved. Heterogeneous uterus. Prominent right adnexal cyst measuring up to 5.1 centimeters. Correlation with pelvic ultrasound may be helpful if clinically indicated. Mild thickening of the sigmoid colon. Appendix is visualized and appears somewhat prominent measuring up to 1.1 centimeters in width. Few adjacent periappendiceal lymph nodes for example on series 3, image 103 measuring up to 1.3 centimeters. Clinical correlation. Few shotty para-aortic and inguinal lymph nodes. Few shotty mesenteric lymph nodes. Mild sclerosis of the bilateral SI joints. Impression: 1. Appendix is visualized and appears somewhat prominent measuring up to 1.1 centimeters in width. Few adjacent periappendiceal lymph nodes for example on series 3, image 103 measuring up to 1.3 centimeters. These findings may represent an acute appendicitis in the appropriate clinical setting. Clinical correlation. 2. 5.1 centimeter right ovarian cyst. Correlation with pelvic ultrasound may be helpful if clinically indicated. 3. Mild thickening of the sigmoid colon. This may represent the sequelae of acute infectious and or inflammatory changes. Clinical correlation. 4. Contracted gallbladder which appears somewhat thickened and enhancing. Clinical correlation. Correlation with right upper quadrant ultrasound may be helpful. 5. Rotated right pelvic kidney. A preliminary report was generated at 12:33 a.m. 12/16/[address] Mariza Jaime from [employer].
--- NOTE | 2018-12-16 12:46 | US ---
Pelvic ultrasound History: Pelvic pain. Right ovarian cyst. Comparison: CT dated 12/15/2018 Technique: Real-time sonography was performed through the pelvis utilizing transabdominal and transvaginal techniques. Findings: Uterus: 10.0 x 5.0 x 5.9 centimeters. Heterogeneous echotexture. Anteverted. Endometrium measures 6 millimeters, within normal limits. Nabothian cysts noted at the level of the cervix. Free fluid noted within the pelvic cul-de-sac. Right ovary: 6.3 x 6.0 x 6.1 centimeters. Normal flow. Heterogeneous hypoechoic cyst measuring 4.8 x 4.5 x 4.5 centimeters. Left ovary: 2.8 x 1.6 x 2.8 centimeters. Normal flow. Small follicle measuring 1.1 x 1.2 x 1.2 centimeters. Incidentally noted is a right pelvic kidney measuring 8.6 x 3.0 x 6.3 centimeters. Impression: 1. Heterogeneous hypoechoic 4.8 centimeter right ovarian cyst. 4-6 week interval follow-up may be helpful if clinically indicated. 2. 1.2 centimeter left ovarian follicle. 3. Free fluid within the pelvic cul-de-sac. 4. Nabothian cysts noted at the level of the cervix. 5. Right pelvic kidney noted.
[2018-12-16] MEDS ORDERED: Lidocaine/Epinephrine 1% 1:100000 10 ML IJ ONE (13:41)
[2018-12-16] MEDS ORDERED: Bupivacaine 0.25% 20 ML INJ IJ ONE (13:41)
[2018-12-16] MEDS ORDERED: ceFAZolin 1 gm in NS 1 GM/100 ML BAG IVPB ONE (16:39)
[2018-12-16] MEDS ORDERED: Propofol 10 mg/ml Inj (20 ML) ONE (16:51)
[2018-12-16] MEDS ORDERED: Midazolam 2 MG/2 ML VIAL ONE (16:51)
[2018-12-16] MEDS ORDERED: Neostigmine 1:1000 (1 mg/ml) Inj ONE (18:04)
[2018-12-16] MEDS ORDERED: HYDROmorphone 0.5 mg/0.5 ml ISec IVP PRN (18:09)
[2018-12-16] MEDS ORDERED: Morphine 4 MG/ML VIAL ONE (18:40)
--- NOTE | 2018-12-16 18:58 | PCM.SURG1 ---
Surgeon's Initial Post Op Note - Surgeon's Notes Surgeon: MD Saurav. Marcelino Pimentel MD Strategic Advisor: Сергей, PGY3. Robinson, PGY1 Pre-Operative Diagnosis: Acute appendicitis, right ovarian cyst Operative Findings: inflammed appendix, right ovarian cyst Post-Operative Diagnosis: Acute appendicitis, right ovarian cyst Operation Performed: Laparoscopic appendectomy, Right oophorectomy with cyst Specimen/Specimens Removed: appendix, right ovary Estimated Blood Loss: EBL {In ML}: 10 Date of Surgery/Procedure: 12/16/18 Time of Surgery/Procedure: 17:00
--- NOTE | 2018-12-16 19:06 | PCM.SURG1 ---
Surgeon's Initial Post Op Note - Surgeon's Notes Surgeon: Mery person MD Presentation Manager: Dr Mix Type of Anesthesia: General Endo Pre-Operative Diagnosis: pelvic pain, adnexla mass, right ovarian cyst Operative Findings: enlarged right ovary adherent to right fallopian tube with enclarge 6cm right ovarian cyst. 10 week size uter, normal left fallopian tube and ovary. omental adhesions lysed by general srugery. Post-Operative Diagnosis: same as preoperative diagnosis Operation Performed: operative laparascopy, right salpingooperhecotmy, aspiration of right ovarian cystic contents Specimen/Specimens Removed: right ovary and cyst with fallopain tube, right ovarian cyst aspriation Estimated Blood Loss: EBL {In ML}: 5 Blood Products Given: N/A Drains Used: No Drains Post-Op Condition: Good Date of Surgery/Procedure: 12/16/18 Time of Surgery/Procedure: 18:00
[2018-12-16] MEDS ORDERED: Lactated Ringer's 1,000 ML IV ONE (20:20)
[2018-12-17 01:44] VITALS: RESP 20
[2018-12-17] MEDS: Piperacillin/Tazobact 3.375 GM in Sodium Chloride 100 ML IVPB SCH ×3 (02:41→13:38)
--- NOTE | 2018-12-17 03:20 | OP ---
PROCEDURE DATE: 12/16/2018 INDICATIONS: The patient is a 38-year-old para 3 with acute severe pelvic pain that was admitted to the ER with the CT scan. Initial diagnosis was appendicitis with a finding of a 5 cm adnexal cyst. A INVESTIGATIVE ASSISTANT consultation was performed, and also an ultrasound was ordered which was consistent with a 5 cm adnexal mass concerned for ovarian torsion, pelvic pain, rupture of ovarian cyst, given the free fluids. The patient was counseled and consented to go to the operating room for an appendectomy laparoscopically with General Surgery, and was also advised a concomitant intraoperative consultation possibility. Risks, benefits, and alternatives were discussed with the patient. SURGEON: Mery Pimentel MD SILK SPOTTER: Dr. Mg. TYPE OF ANESTHESIA: General endotracheal. PREOPERATIVE DIAGNOSIS: Pelvic pain, adnexal mass, right ovarian cyst, adhesions. OPERATIVE FINDINGS: Enlarged right ovary adherent to right fallopian tube with enlarged 6 cm right ovarian cyst, 10-week size uterus, normal left fallopian tube and ovary, omental adhesions lysed by General Surgery. POSTOPERATIVE DIAGNOSIS: Pelvic pain, adnexal mass, right ovarian cyst, adhesions. OPERATIONS PERFORMED: Operative laparoscopy, right salpingo-oophorectomy, aspiration of right ovarian cystic contact as an intraoperative consult. SPECIMEN REMOVED: Right ovarian cyst with fallopian tube, right ovarian cyst aspiration. ESTIMATED BLOOD LOSS: 5 mL. BLOOD PRODUCTS: None. COMPLICATIONS: None. DESCRIPTION OF PROCEDURE: An intraoperative consult was performed. The port site had already been entered. As per General Surgery, the uterus and adnexa were evaluated. The left ovary and tube appeared normal. The right ovary was enlarged adherent to the right fallopian tube. A laparoscopic needle was used to drain the ovarian cyst contact that contained fluid. After this, the right ovary appeared to be grossly adherent to the fallopian tube is which the fallopian tube was elevated using a laparoscopic Fatuma. Using the LigaSure device, the utero-ovarian ligament was ligated, cut and cauterized. Along the mesosalpinx to the level of the infundibular pelvic ligament, the ureter was carefully identified and avoided. The specimen was removed within an EndoCatch bag. The area was then carefully irrigated and inspected, and there was good hemostasis noted. General Surgery then proceeded to close the laparoscopic operative port. Mery Pimentel MD
[2018-12-17] MEDS: Lactated Ringer's 1,000 ML IV SCH (07:02)
--- NOTE | 2018-12-17 07:30 | OP ---
PROCEDURE DATE: 12/16/2018 PREOPERATIVE DIAGNOSES: 1. Acute appendicitis. 2. Right ovarian cyst. POSTOPERATIVE DIAGNOSES: 1. Acute appendicitis. 2. Right ovarian cyst. PROCEDURES DONE: 1. Laparoscopic appendectomy. 2. Laparoscopic pelvic exploration. 3. Laparoscopic extensive adhesiolysis and enterolysis. SURGEON: Saul Mg MD ASSISTANTS: Marbin Rushing DO, PGY-3 resident and Amber PGY-1 resident. ANESTHESIA: General endotracheal tube anesthesia. ESTIMATED BLOOD LOSS: Around 10 mL. DRAINS: None. PATHOLOGY: Appendix was sent for the pathology. COMPLICATIONS: None. INTRAOPERATIVE FINDINGS: The patient had a right ovarian cyst. The patient also had acute appendicitis. DESCRIPTION OF PROCEDURE: On intraoperative steps, this is a 38-year-old female who was diagnosed with a right lower quadrant pain. The patient was consented for the laparoscopic appendectomy as well as laparoscopic exploration and possible ovarian cyst removal by Dr. Marcelino Pimentel. The patient was brought to the OR, placed supine on the operating room table. After induction of the anesthesia, the abdomen was prepped and draped in the usual sterile fashion. A supraumbilical transverse incision was made. Using open technique, Rashmi port was placed and pneumo was created. The patient found to have adhesions in the lower part of the abdomen due to previous multiple C-sections. After complete lysis of adhesions, the 5-mm port was placed in the suprapubic region, and the left-sided port was placed in the left lower quadrant. After that, appendix was visualized and the mesoappendix was resected with a Harmonic scalpel. The base of the appendix was resected with a DUONG, and proper hemostasis was achieved. Now, the pelvic exploration was done. The right ovarian cyst was identified. Now, the rest of the dictation will be done by Dr. Marcelino Pimentel for right salpingo-oophorectomy. After completion of the procedure, there was a proper hemostasis and suction irrigation of the pelvis as well as the periappendicular and perihepatic area was done. All the fluid was taken out. All the ports were taken out under vision. All the ports were taken out under vision. Pneumo was deflated. The umbilical port site was closed in two layers, the fascia with 0 Vicryl interrupted sutures, skin with 4-0 Monocryl, and dry sterile dressing was applied. The patient tolerated the procedure well. Count of instrument and gauze was correct. There was no apparent complication. The patient was extubated in OR and sent to the postanesthesia care unit in stable condition. Saul Mg MD MTDAusten
--- NOTE | 2018-12-17 07:36 | CP.PCM.PN ---
Subjective - Date & Time of Evaluation Date of Evaluation: 12/17/18 Time of Evaluation: 07:00 - Subjective Subjective: [employer] progress note Patient examined at bedside with in room. No acute overnight events. Patient reports diffuse abdominal pain, well controlled with pain medication. Patient complains of decreased sensation to right hand 2/2 IV which was just recently moved to left arm. Patient understands the right adnexal cyst was asp irated, right ovary and tube removed, as well as her appendix. Patient denies nausea and vomiting; no flatus or BM. Objective - Vital Signs/Intake and Output Vital Signs (last 24 hours): Temp Pulse Resp BP Pulse Ox 98.4 F 80 20 101/65 95 12/16/18 23:15 12/16/18 23:15 12/16/18 23:15 12/16/18 23:15 12/16/18 23:15 Intake and Output: 12/17/18 12/17/18 06:59 18:59 Output Total 1050 Balance -1050 - Medications Medications: Current Medications Lactated Ringer's (Lactated Ringer's) 1,000 mls @ 100 mls/hr IV .Q10H ANASTASIYA Last Admin: 12/17/18 07:02 Dose: 100 mls/hr Piperacillin Sod/Tazobactam (Sod 3.375 gm/ Sodium Chloride) 100 mls @ 200 mls/hr IVPB Q6H ANASTASIYA; Protocol Last Admin: 12/17/18 02:41 Dose: 200 mls/hr Ketorolac Tromethamine (Toradol) 30 mg IVP Q6H PRN PRN Reason: Pain, moderate (4-7) Stop: 12/21/18 01:21 Last Admin: 12/16/18 21:35 Dose: 30 mg - Labs Labs: 12/16/18 07:15 12/15/18 22:29 PT 13.0 SECONDS (9.7-12.2) H 12/15/18 22:29 INR 1.2 12/15/18 22:29 APTT 33 SECONDS (21-34) 12/15/18 22:29 - Constitutional Appears: Non-toxic, No Acute Distress - Head Exam Head Exam: ATRAUMATIC, NORMAL INSPECTION, NORMOCEPHALIC - Eye Exam Eye Exam: EOMI, Normal appearance - ENT Exam ENT Exam: Mucous Membranes Dry, Normal Exam - Neck Exam Neck Exam: Normal Inspection - Respiratory Exam Respiratory Exam: Clear to Ausculation Bilateral, NORMAL BREATHING PATTERN - Cardiovascular Exam Cardiovascular Exam: REGULAR RHYTHM. absent: Tachycardia - GI/Abdominal Exam GI & Abdominal Exam: Soft, Tenderness (diffuse, greatest in RLQ), Hypoactive Bowel Sounds. absent: Distended Additional comments: Laparoscopic incision sites dressed, clean/dry/intact. No surrounding erythema. - Extremities Exam Extremities Exam: Normal Capillary Refill, Normal Inspection. absent: Calf Tenderness, Pedal Edema - Neurological Exam Neurological Exam: Alert, Awake, Oriented x3 - Psychiatric Exam Psychiatric exam: Normal Affect, Normal Mood - Skin Skin Exam: Dry, Intact, Normal Color, Warm Assessment and Plan - Assessment and Plan (Free Text) Assessment: 38 year old female s/p lap appy(w/ gen surg), and aspiration of right adnexal cyst, right salpingoophorectomy 2/2 appendicitis and right adnexal adhesions; POD #1 Plan: POD #1 -pain medication PRN -ADAT -f/u pathology -management per surgery -no further manager gyn management indicated at this time; patient instructed to follow up with injection molding technician within 1 week of discharge. If patient does not have one, patient may follow up with Dr. Pimentel outpatient by calling her office at , or may apply for [facility] and follow up in clinic. Discussed with Dr. Rosales -Tawny Munoz, PGY-1
[2018-12-17 08:10] LABS: BASO % 0.2 % (0.0-2.0); EOS # 0.2 K/uL (0.0-0.7); EOS % 3.9 % (0.0-4.0); HEMOGLOBIN 11.5 g/dL (11.0-16.0); LYMPH # 2.1 K/uL (1.0-4.3); LYMPH % 34.7 % (20.0-40.0); MEAN CELL VOLUME 87.8 fL (81.0-99.0); MEAN CORPUSCULAR HEMOGLOBIN 29.3 pg (27.0-31.0); MEAN CORPUSCULAR HGB CONC 33.4 g/dL (33.0-37.0); MEAN PLATELET VOLUME 9.9 fL (7.2-11.7); MONO # 0.4 K/uL (0.0-0.8); MONO % 5.9 % (0.0-10.0); NEUT # 3.4 K/uL (1.8-7.0); NEUT % 55.3 % (50.0-75.0); NRBC % 0.1 % (0.0-2.0); RBC 3.92 Mil/uL (3.80-5.20); RED CELL DISTRIBUTION WIDTH 12.8 % (11.5-14.5); WHITE BLOOD COUNT 6.2 K/uL (4.8-10.8)
[2018-12-17] MEDS ORDERED: Oxycodone/Acetaminophen 5/325 mg Tab PO PRN (11:37)
--- NOTE | 2018-12-17 11:38 | CP.PCM.PN ---
<Marbin Rushing - Last Filed: 12/17/18 11:35> Subjective - Date & Time of Evaluation Date of Evaluation: 12/17/18 Time of Evaluation: 11:35 - Subjective Subjective: SURGERY NOTE FOR DR. MG 38F seen and examined at bedside. Patient states she does have pain, denies nausea or vomiting. She has been tolerating regular diet. Denies flatus. Objective - Vital Signs/Intake and Output Vital Signs (last 24 hours): Temp Pulse Resp BP Pulse Ox 98.2 F 72 20 93/57 L 94 L 12/17/18 07:25 12/17/18 07:25 12/17/18 07:25 12/17/18 07:25 12/17/18 07:25 Intake and Output: 12/17/18 12/17/18 06:59 18:59 Output Total 1050 Balance -1050 - Medications Medications: Current Medications Lactated Ringer's (Lactated Ringer's) 1,000 mls @ 100 mls/hr IV .Q10H ANASTASIYA Last Admin: 12/17/18 07:02 Dose: 100 mls/hr Piperacillin Sod/Tazobactam (Sod 3.375 gm/ Sodium Chloride) 100 mls @ 200 mls/hr IVPB Q6H ANASTASIYA; Protocol Last Admin: 12/17/18 08:00 Dose: 200 mls/hr Oxycodone/Acetaminophen (Percocet 5/325 Mg Tab) 1 tab PO Q4H PRN PRN Reason: Pain, severe (8-10) Stop: 12/20/18 11:35 - Labs Labs: 12/17/18 07:43 12/15/18 22:29 PT 13.0 SECONDS (9.7-12.2) H 12/15/18 22:29 INR 1.2 12/15/18 22:29 APTT 33 SECONDS (21-34) 12/15/18 22:29 - Constitutional Appears: Non-toxic, No Acute Distress - Respiratory Exam Respiratory Exam: Clear to Ausculation Bilateral, NORMAL BREATHING PATTERN - Cardiovascular Exam Cardiovascular Exam: REGULAR RHYTHM, +S1, +S2 - GI/Abdominal Exam GI & Abdominal Exam: Distended, Soft, Tenderness. absent: Firm, Rigid, Rebound Additional comments: dressings CDI - Extremities Exam Extremities Exam: absent: Pedal Edema, Tenderness - Neurological Exam Neurological Exam: Alert, Awake Assessment and Plan - Assessment and Plan (Free Text) Assessment: 38F s/p laparoscopic appendectomy/right salpingoopherectomy POD#1 Plan: manage pain monitor diet bowel function Likely DC Further recs discuss with Dr. Saurav Rushing, PGY3 <Saul Mg - Last Filed: 12/21/18 16:52> Objective - Vital Signs/Intake and Output Vital Signs (last 24 hours): Temp Pulse Resp BP Pulse Ox 98.3 F 73 20 103/66 95 12/17/18 16:00 12/17/18 16:00 12/17/18 16:00 12/17/18 16:00 12/17/18 16:00 - Labs Labs: 12/17/18 07:43 12/15/18 22:29 PT 13.0 SECONDS (9.7-12.2) H 12/15/18 22:29 INR 1.2 12/15/18 22:29 APTT 33 SECONDS (21-34) 12/15/18 22:29 Attending/Attestation - Attestation I have personally seen and examined this patient.: Yes I have fully participated in the care of the patient.: Yes I have reviewed all pertinent clinical information, including history, physical exam and plan: Yes Notes (Text): Pt was seen and examined at bedside Agree with above note and assessment Pt is improving clinically Can be DC home with PO antibiotics Local wound care f.u as out pt Plan d.w pt in detail. Risk and benefit explained in detail.
[2018-12-17] MEDS ORDERED: DiphenhydrAMINE 50 mg/ml Inj IVP STA (13:51)
--- NOTE | 2018-12-17 14:05 | CP.PCM.DIS ---
Provider - Provider Date of Admission: 12/16/18 01:16 Attending physician: Saul Mg MD Consults: 12/16/18 08:03 Physician Consult Routine Comment: Consulting Provider: Alicia Hough Consulting Physician: Alicia Hough Reason for Consult: Abdominal pain- R ovarian cyst vs appendicitis Time Spent in preparation of Discharge (in minutes): 40 Hospital Course - Lab Results Lab Results: Micro Results 12/16/18 06:19 Blood-Venous Blood Culture - Preliminary NO GROWTH AFTER 24 HOURS 12/16/18 06:19 Blood-Venous Blood Culture - Preliminary NO GROWTH AFTER 24 HOURS Most Recent Lab Values WBC 6.2 K/uL (4.8-10.8) 12/17/18 07:43 RBC 3.92 Mil/uL (3.80-5.20) 12/17/18 07:43 Hgb 11.5 g/dL (11.0-16.0) 12/17/18 07:43 Hct 34.4 % (34.0-47.0) 12/17/18 07:43 MCV 87.8 fL (81.0-99.0) 12/17/18 07:43 MCH 29.3 pg (27.0-31.0) 12/17/18 07:43 MCHC 33.4 g/dL (33.0-37.0) 12/17/18 07:43 RDW 12.8 % (11.5-14.5) 12/17/18 07:43 Plt Count 197 K/uL (130-400) 12/17/18 07:43 MPV 9.9 fL (7.2-11.7) 12/17/18 07:43 Neut % (Auto) 55.3 % (50.0-75.0) 12/17/18 07:43 Lymph % (Auto) 34.7 % (20.0-40.0) 12/17/18 07:43 [place] % (Auto) 5.9 % (0.0-10.0) 12/17/18 07:43 Eos % (Auto) 3.9 % (0.0-4.0) 12/17/18 07:43 Baso % (Auto) 0.2 % (0.0-2.0) 12/17/18 07:43 Neut # (Auto) 3.4 K/uL (1.8-7.0) 12/17/18 07:43 Lymph # (Auto) 2.1 K/uL (1.0-4.3) 12/17/18 07:43 [place] # (Auto) 0.4 K/uL (0.0-0.8) 12/17/18 07:43 Eos # (Auto) 0.2 K/uL (0.0-0.7) 12/17/18 07:43 Baso # (Auto) 0.0 K/uL (0.0-0.2) 12/17/18 07:43 PT 13.0 SECONDS (9.7-12.2) H 12/15/18 22:29 INR 1.2 12/15/18 22:29 APTT 33 SECONDS (21-34) 12/15/18 22:29 Sodium 136 mmol/L (132-148) 12/15/18 22:29 Potassium 3.7 mmol/L (3.6-5.2) 12/15/18 22:29 Chloride 101 mmol/L (98-107) 12/15/18 22:29 Carbon Dioxide 27 mmol/L (22-30) 12/15/18 22:29 Anion Gap 12 (10-20) 12/15/18 22:29 BUN 19 mg/dL (7-17) H 12/15/18 22:29 Creatinine 0.8 mg/dL (0.7-1.2) 12/15/18 22:29 Est GFR ( Amer) > 60 12/15/18 22:29 Est GFR (Non-Af Amer) > 60 12/15/18 22:29 Random Glucose 94 mg/dL (65-105) 12/15/18 22:29 Calcium 9.4 mg/dl (8.6-10.4) 12/15/18 22:29 Total Bilirubin 0.4 mg/dL (0.2-1.3) 12/15/18 22:29 AST 19 U/L (14-36) 12/15/18 22:29 ALT 18 U/L (9-52) 12/15/18 22:29 Alkaline Phosphatase 45 U/L (38-126) 12/15/18 22:29 Total Protein 7.7 g/dL (6.3-8.3) 12/15/18 22: Albumin 4.5 g/dL (3.5-5.0) 12/15/18: Globulin 3.2 gm/dL (2.2-3.9) 12/15/18 22: Albumin/Globulin Ratio 1.4 (1.0-2.1) 12/15/18: Lipase 61 U/L (23-300) 12/15/18: Urine Color Yellow (YELLOW) 12/15/18: Urine Clarity Clear (Clear) 12/15/18: Urine pH 6.0 (5.0-8.0) 12/15/18: Ur Specific [place] 1.025 (1.003-1.030) 12/15/18: Urine Protein Negative mg/dL (NEGATIVE) 12/15/18 Urine Glucose (UA) Negative mg/dL (Normal) 12/15/18: Urine Ketones Negative mg/dL (NEGATIVE) 12/15/18: Urine Blood Trace-lysed (NEGATIVE) 12/15/18: Urine Nitrate Negative (NEGATIVE) 12/15/18: Urine Bilirubin Negative (NEGATIVE) 12/15/18: Urine Urobilinogen 0.2 mg/dL (0.2-1.0) 12/15/18: Ur Leukocyte Esterase Negative [place]/uL (Negative) 12/15/18: Urine WBC (Auto) 1 /hpf (0-5) 12/15/18: Urine RBC (Auto) 2 /hpf (0-3) 12/15/18: Ur Squamous Epith Cells 4 /hpf (0-5) 12/15/18: Urine HCG, Qual Negative (NEGATIVE) 12/15/18 - Hospital Course Hospital Course: Patient admitted to hospital for acute appendicitis and right ovarian cyst as seen on CT. patient had tenderness. Was taken to OR for lap appendectomy, and right oophorectomy with OBGYN. Post-op patient tolerating diet and and ready to go home Discharge Exam - Head Exam Head Exam: ATRAUMATIC, NORMAL INSPECTION, NORMOCEPHALIC - Eye Exam Eye Exam: EOMI, PERRL - Respiratory Exam Respiratory Exam: Clear to PA & Lateral, NORMAL BREATHING PATTERN - Cardiovascular Exam Cardiovascular Exam: REGULAR RHYTHM, +S1, +S2 - GI/Abdominal Exam GI & Abdominal Exam: Soft, Tenderness. absent: Distended, Firm, Guarding, Rebound, Rigid Additional comments: dressing CDI - Neurological Exam Neurological exam: Alert, Oriented x3 - Skin Skin Exam: Dry, Intact, Normal Color, Warm Discharge Plan - Discharge Medications Prescriptions: Docusate [Colace] 100 mg PO DAILY #30 cap oxyCODONE/Acetaminophen [Percocet 5/325 mg Tab] 1 tab PO Q6 PRN #20 tab PRN Reason: Pain, Severe (8-10) - Follow Up Plan Condition: FAIR Disposition: HOME/ ROUTINE Patient education suggested?: Yes Instructions: Appendectomy, Laparoscopic Surgery (DC), Ovarian Cyst Removal, Laparoscopic Surgery Additional Instructions: 1) Continue liquid/soft diet at home for 3 days before advancing diet 2) Please follow up in office in 1-2 weeks 3) May shower but do not bath 4) May remove dressing in 4 days 5) Steri-strips will fall off on their own 6) Take medications as prescribed Referrals: Mery Pimentel MD [Staff Provider] -
[2018-12-17 16:27] VITALS: BP 103/66; PULSE 73; TEMP 98.3; O2SAT 95
== END 2018-12-17 16:59 | disposition home or self-care (01) | DRG 150 ==
LOC: C.ER 21:25 → C.6T 12-16 01:16
PROVIDERS: ADMIT Surgery Surgical Critical Care; ATTEND Surgery Surgical Critical Care
PROC: 0UT04ZZ Resection of Right Ovary, Percutaneous Endoscopic Approach (ICD-10-PCS; 2018-12-16)
PROC: 0UT54ZZ Resection of Right Fallopian Tube, Percutaneous Endoscopic Approach (ICD-10-PCS; 2018-12-16)
PROC: 0DTJ4ZZ Resection of Appendix, Percutaneous Endoscopic Approach (ICD-10-PCS; principal; 2018-12-16 15:15)
PROC: 0DNW4ZZ Release Peritoneum, Percutaneous Endoscopic Approach (ICD-10-PCS; 2018-12-16 15:15)
DX: K35.80 Unspecified acute appendicitis (principal); O24.92 Unspecified diabetes mellitus in childbirth; N73.6 Female pelvic peritoneal adhesions (postinfective); N83.201 Unspecified ovarian cyst, right side; E11.9 Type 2 diabetes mellitus without complications